=== PATIENT | male | born 1975 | race Caucasian/White ===

== ENCOUNTER 2018-09-20 13:16 | Emergency (ER) | payer OTHER ==
--- NOTE | 2018-09-20 13:53 | Emergency Department Report ---
Chief Complaint: Wound/Laceration Stated Complaint: CUT ON RT FOOT Time Seen by Provider: 09/20/18 13:50 - HPI History of Present Illness: [place] got [place] cut yesterday laceration to the right heel used glue to close it, states he cleaned it well does not know what did it last tetanus unsure MSE screening note: Focused history and physical exam performed. Due to findings the following was ordered: xr left foot ED Disposition for MSE Condition: Stable
[2018-09-20] MEDS ORDERED: BOOSTRIX IM ONE (13:54)
[2018-09-20 13:56] VITALS: BP 120/70
--- NOTE | 2018-09-20 14:47 | XRay Report ---
PROCEDURE: XR FOOT 2V RT TECHNIQUE: Right foot radiographs, 2 views. HISTORY: laceration to right heel COMPARISONS: None currently available. FINDINGS: There is no acute fracture. There is no evidence for healing fracture. There is no acute dislocation. No significant arthrosis. Achilles enthesophyte and calcaneal plantar spur. There is no cortical destruction to suggest osteomyelitis. There are no suspicious osseous lesions. There are no radiopaque foreign objects. IMPRESSION: * No acute osseous findings. This document is electronically signed by Esequiel Price MD., September 20 2018 02:45:36 PM ET
--- NOTE | 2018-09-20 16:18 | Emergency Department Report ---
ED Laceration HPI - HPI Chief Complaint: Wound/Laceration Stated Complaint: CUT ON RT FOOT Time Seen by Provider: 09/20/18 13:50 Occurred When: Yesterday Location: Lower Extremity Severity: mild Tetanus Status: Not up to Date Laceration Symptoms: Yes Pain, No Foreign Body Sensation, No Numbness, No Weakness Other History: This is a 43-year-old male nontoxic, well nourished in appearance, no acute signs of distress presents to the ED with c/o of left foot laceration that occurred yesterday. Patient stated [place] and believes either walks or glass cut his foot. Patient stated he is not up-to-date tetanus. Denies any foreign body sensation. Patient stated he used glue to close the laceration. Patient denies any fever, chills, nausea, vomiting, chest precautions of breath, headache or stiff neck. Patient denies any drug allergies significant past medical history. ED Review of Systems ROS: Stated complaint: CUT ON RT FOOT Other details as noted in HPI Constitutional: denies: chills, fever Eyes: denies: eye pain, eye discharge, vision change ENT: denies: ear pain, throat pain Respiratory: denies: cough, shortness of breath, wheezing Cardiovascular: denies: chest pain, palpitations Endocrine: no symptoms reported Gastrointestinal: denies: abdominal pain, nausea, diarrhea Genitourinary: denies: urgency, dysuria Musculoskeletal: denies: back pain, joint swelling, arthralgia Skin: denies: rash, lesions Neurological: denies: headache, weakness, paresthesias Psychiatric: denies: anxiety, depression Hematological/Lymphatic: denies: easy bleeding, easy bruising ED Past Medical Hx - Past Medical History Previous Medical History?: No - Surgical History Past Surgical History?: No - Social History Smoking Status: Never Smoker Substance Use Type: Alcohol - Medications Home Medications: Home Medications Medication Instructions Recorded Confirmed Last Taken Type HYDROcodone/APAP 5-325 [[place] 1 each PO Q6HR PRN #20 tablet 06/25/14 Unknown Rx 5-325 mg TAB] Ibuprofen [Motrin] 800 mg PO Q8H #30 tablet 06/25/14 Unknown Rx Cyclobenzaprine [Flexeril 10 MG 10 mg PO Q8H PRN #21 tablet 02/27/15 Unknown Rx TAB] Pauline Santana [Jay Santana] 75 mg PO Q12H #30 tablet 02/27/15 Unknown Rx HYDROcodone/APAP 5-325 [[place] 1 each PO Q6HR PRN #20 tablet 02/27/15 Unknown Rx 5/325] Aspirin [Aspirin BABY CHEW TAB] 81 mg PO QDAY #30 tab.chew 05/02/18 Unknown Rx Acetaminophen/Codeine [Tylenol 1 tab PO Q6H PRN #12 tab 09/20/18 Unknown Rx /Codeine # 3 tab] Doxycycline [Vibramycin CAP] 100 mg PO Q12HR #14 capsule 09/20/18 Unknown Rx Sulfamethoxazole/Trimethoprim 1 each PO BID #14 tablet 09/20/18 Unknown Rx [Bactrim DS TAB] Laceration Physical Exam - Exam General: Vital signs noted. No distress. Alert and acting appropriately. Wound Length (cm): 1 Laceration Location: Lower Extremity Laceration Exam: Yes Normal Distal CMS, No Foreign Body, No Exposed Tendon, Vessel, or Nerve, No Tendon Injury ED Course Vital Signs 09/20/18 13:53 Temperature 98.2 F Pulse Rate 85 Respiratory 16 Rate Blood Pressure 120/70 O2 Sat by Pulse 97 Oximetry - Reevaluation(s) Reevaluation #1: 09/20/18 16:23 Patient is speaking in full sentences with no signs of distress noted. ED Medical Decision Making - Medical Decision Making This is a 43-year-old male that presents with laceration. Patient is stable and was examined by me. The laceration has been clean. Lac was more then 24 hours. Area is approximated together now because patient put glue. A sterile dressing has been applied. Patient is discharged with Bactrim, Doxy and Tylenol with codeine and was instructed not to operate any machinery while taking Tylenol with codeine due to drowsiness. Patient was instructed to refer to Follow-up with a primary care doctor in 3-5 days or if symptoms worsen and continue return to emergency room as soon as possible. At time of discharge, the patient does not seem toxic or ill in appearance. No acute signs of distress noted. Patient agrees to discharge treatment plan of care. No further questions noted by the patient. Critical care attestation.: If time is entered above; I have spent that time in minutes in the direct care of this critically ill patient, excluding procedure time. ED Disposition Clinical Impression: Laceration Disposition: [id number] TO HOME OR SELFCARE Is pt being admited?: No Does the pt Need Aspirin: No Condition: Stable Additional Instructions: Follow-up with a primary care doctor in 3-5 days or if symptoms worsen and continue return to emergency room as soon as possible. Do not operate any machinery while taking Tylenol with codeine as this may cause drowsiness. Prescriptions: Sulfamethoxazole/Trimethoprim [Bactrim DS TAB] 1 each PO BID #14 tablet Acetaminophen/Codeine [Tylenol /Codeine # 3 tab] 1 tab PO Q6H PRN #12 tab PRN Reason: Pain , Severe (7-10) Doxycycline [Vibramycin CAP] 100 mg PO Q12HR #14 capsule [facility] - 3-5 Days PRIMARY CAREM[facility] [Referring] - 3-5 Days DAISHA WYATT MD [Staff Physician] - 3-5 Days [facility] [Outside] - 3-5 Days [facility] [Outside] - 3-5 Days Forms: Work/School Release Form(ED)
== END 2018-09-20 17:08 | disposition home or self-care (01) ==
LOC: ED 13:16
DX: S91.312A Laceration without foreign body, left foot, initial encounter (principal); W25.XXXA Contact with sharp glass, initial encounter; Y93.89 Activity, other specified; Y92.89 Other specified places as the place of occurrence of the external cause; Y99.8 Other external cause status
CPT/HCPCS: 90471; 90715